=== PATIENT | female | born 1945 | race Caucasian/White ===

== ENCOUNTER 2018-07-16 16:36 | Outpatient (CLI) | payer OTHER ==
[2018-07-16 16:42] LABS: Bilirubin Negative (Negative); Blood, Urine Negative (Negative); Clarity Clear (Clear); Glucose, Urine (Dipstick) Negative (Negative); Leukocyte Negative (Negative); Nitrite Negative (Negative); Protein, Urine (Dipstick) Negative (Neg-Trace); Urobilinogen 0.2 mg/dL (0.2-1.0)
== END 2018-07-16 16:37 | disposition home or self-care (01) ==
LOC: NAV LAB 16:36
PROVIDERS: ATTEND Pathology Anatomic Pathology & Clinical Pathology
DX: Z00.00 Encounter for general adult medical examination without abnormal findings (principal)
CPT/HCPCS: 81003

== ENCOUNTER 2019-04-04 13:22 | Emergency (ER) | payer MEDICARE, BC ==
--- NOTE | 2019-04-04 14:50 | RAD ---
RIGHT HIP 2 VIEWS: HISTORY: Hip pain. FINDINGS: There are mild degenerative changes at the hip with spurring from the femoral head. No fracture. No acute osseous abnormality. IMPRESSION: Mild to moderate degenerative changes right hip. POS: OFF
== END 2019-04-04 14:50 | disposition home or self-care (01) ==
LOC: NAV ERS 13:22
DX: M70.61 Trochanteric bursitis, right hip (principal); K21.9 Gastro-esophageal reflux disease without esophagitis; F41.9 Anxiety disorder, unspecified; E66.9 Obesity, unspecified; F32.9 Major depressive disorder, single episode, unspecified; F17.210 Nicotine dependence, cigarettes, uncomplicated; Z79.899 Other long term (current) drug therapy